=== PATIENT | female | born 1990 | race Caucasian/White ===

== ENCOUNTER 2021-07-19 03:29 | Inpatient (IN) ==
[2021-07-19] MEDS ORDERED: *HR* Labetalol 20 MG/4 ML SYRINGE IVP ONE (04:29)
[2021-07-19] MEDS ORDERED: Famotidine 20 MG/2 ML VIAL IVP PRN (04:30)
[2021-07-19] MEDS ORDERED: Naloxone 0.4 MG/ML INJ IVP PRN (04:30)
[2021-07-19] MEDS ORDERED: Metoclopramide 10 MG/2 ML VIAL IVP PRN (04:30)
[2021-07-19] MEDS ORDERED: *HR* Nalbuphine 10 MG/ML AMPUL IV PRN (04:30)
[2021-07-19 05:06] LABS: Basophils % 0.2 %; Eosinophils # 0.1 K/mcL (0.0-0.6); Hematocrit 34.3 % (35.3-44.9); Hemoglobin 10.5 g/dL (11.5-15.4); Immature Granulocytes % 0.6 % (0-4); Lymphocytes % 15.9 %; Mean Corpuscular HGB Conc 30.6 g/dL (31.6-35.5); Mean Corpuscular Hemoglobin 22.7 pg (28.0-33.3); Mean Corpuscular Volume 74.2 fL (83.0-100.0); Mean Platelet Volume 10.3 fL (9.4-12.4); Monocytes # 0.8 K/mcL (0.0-1.3); Monocytes % 6.5 %; Neutrophils # 9.4 K/mcL (1.6-8.9); Platelet Count 283 K/mcL (140-400); Red Blood Count 4.62 M/mcL (3.82-4.97); Red Cell Distribution Width 17.7 % (11.5-14.5); Segmented Neutrophils % 75.8 %; White Blood Count 12.4 K/mcL (4.3-11.1)
[2021-07-19 05:44] LABS: Influenza A PCR Negative (Negative); Influenza B PCR Negative (Negative); Resp. Syncytial Virus PCR Negative (Negative)
[2021-07-19 05:45] LABS: SARS-CoV-2 by PCR (In House) Negative (Negative)
[2021-07-19 07:11] LABS: Creatinine,Urine 65 mg/dL; Protein/Creatinine Ratio,Urine 0.23 mg/mg (0.00-0.20)
[2021-07-19] MEDS: Ringers Solution, Lactated 1,000 ML IVC SCH ×3 (08:42→19:03)
[2021-07-19] MEDS ORDERED: Oxytocin 20 units/ LR 1000 mL 20 UNIT/1,000 ML BAG IVC SCH (09:15)
[2021-07-19] MEDS ORDERED: *HR* FentaNYL (PF) 100 MCG/2 ML VIAL ONE (09:35)
[2021-07-19] MEDS ORDERED: Ropivacaine/PF 0.2% 20 ML VIAL ONE (09:35)
[2021-07-19] MEDS ORDERED: Epidural Premix (fent/bupiv) 110 ML EP ONE (09:39)
[2021-07-19] MEDS: Epidural Premix (fent/bupiv) 110 ML EP SCH ×2 (10:02→17:16)
[2021-07-19] MEDS ORDERED: EPHEDrine 50 MG/ML VIAL IVP PRN (10:36)
[2021-07-19 10:40] LABS: Amphetamine Screen,Urine Negative ng/mL (Cutoff=1000); Barbiturate Screen,Urine Negative ng/mL (Cutoff=200); Benzodiazepines Screen,Urine Negative ng/mL (Cutoff=200); Cannabinoid Screen,Urine Negative ng/mL (Cutoff = 50); Cocaine Screen,Urine Negative ng/mL (Cutoff= 300); Opiate Screen,Urine Negative ng/mL (Cutoff=300); Phencyclidine Screen,Urine Negative ng/mL (Cutoff=25)
[2021-07-19] MEDS ORDERED: Ondansetron 4 MG/2 ML VIAL IVP ONE (16:03)
[2021-07-20] MEDS ORDERED: Lidocaine 1% 20 ML MDV ONE (03:01)
[2021-07-20] MEDS ORDERED: Oxytocin 20 units/ LR 1000 mL 20 UNIT/1,000 ML BAG IVC SCH (05:17)
[2021-07-20] MEDS ORDERED: Lanolin 7 G OINT...G. TP PRN (05:17)
[2021-07-20] MEDS ORDERED: Measles/Mumps/Rubella Vacc 0.5 ML VIAL SQ PRN (05:17)
[2021-07-20] MEDS ORDERED: Oxytocin 20 units/ LR 1000 mL 20 UNIT/1,000 ML BAG IVC ONE (05:17)
[2021-07-20] MEDS ORDERED: Benzocaine/Menthol 56 GM AEROSOL SPRAY TP PRN (05:17)
[2021-07-20] MEDS ORDERED: Rho Immune Globulin 1,500 UNIT SYRINGE IM PRN (05:17)
[2021-07-20] MEDS ORDERED: Ondansetron ODT 4 MG TAB.RAPDIS SL PRN (06:00)
[2021-07-20] MEDS: Ibuprofen 600 MG TABLET PO SCH ×3 (06:36→22:55)
[2021-07-20] MEDS: Acetaminophen 325 MG TABLET PO SCH ×2 (08:23→21:24)
[2021-07-20] MEDS: Prenatal Vit/FA 1 EACH TABLET PO SCH (08:23)
[2021-07-20 10:06] LABS: Basophils % 0.1 %; Eosinophils # 0.1 K/mcL (0.0-0.6); Eosinophils % 0.5 %; Hematocrit 30.8 % (35.3-44.9); Hemoglobin 9.7 g/dL (11.5-15.4); Immature Granulocytes % 0.6 % (0-4); Lymphocytes # 1.5 K/mcL (0.6-4.6); Lymphocytes % 9.8 %; Mean Corpuscular HGB Conc 31.5 g/dL (31.6-35.5); Mean Corpuscular Hemoglobin 22.8 pg (28.0-33.3); Mean Corpuscular Volume 72.3 fL (83.0-100.0); Mean Platelet Volume 10.2 fL (9.4-12.4); Monocytes % 6.6 %; Neutrophils # 12.7 K/mcL (1.6-8.9); Nucleated Red Blood Cells 0.1 /100 WBC (0); Platelet Count 254 K/mcL (140-400); Red Blood Count 4.26 M/mcL (3.82-4.97); Red Cell Distribution Width 17.6 % (11.5-14.5); Segmented Neutrophils % 82.4 %; White Blood Count 15.4 K/mcL (4.3-11.1)
[2021-07-21] MEDS: Ibuprofen 600 MG TABLET PO SCH (04:49)
[2021-07-21 08:49] VITALS: BP 127/75; PULSE 81; TEMP 97.6; O2SAT 97
[2021-07-21] MEDS: Acetaminophen 325 MG TABLET PO SCH (09:02)
[2021-07-21] MEDS: Prenatal Vit/FA 1 EACH TABLET PO SCH (09:03)
== END 2021-07-21 12:33 | disposition home or self-care (01) | DRG 806 ==
LOC: 1NENULAB 03:29 → 1NENUOBS 07-20 05:15
PROVIDERS: ADMIT Student in an Organized Health Care Education/Training Program; ATTEND Student in an Organized Health Care Education/Training Program